=== PATIENT | female | born 1975 ===

== ENCOUNTER 2017-12-14 08:53 | Outpatient (CLI) | payer OTHER ==
[~2017-12-14] VITALS: Ht 152.4 cm; Wt 66.7 kg
[~2017-12-14 08:53] MED LIST: MELATONIN10 MG PO
[2017-12-14] MEDS ORDERED: FLONASE16 GM NASAL (12:53)
== END 2017-12-14 09:15 | disposition home or self-care (01) ==
LOC: OFIC 805 08:53
DX: H93.11 Tinnitus, right ear (principal); J31.0 Chronic rhinitis; J34.89 Other specified disorders of nose and nasal sinuses; R22.1 Localized swelling, mass and lump, neck